=== PATIENT | female | born 1980 | race Caucasian/White ===

== ENCOUNTER 2016-06-21 17:58 | Emergency (ER) | payer OTHER ==
[~2016-06-21] VITALS: Ht 160 cm; Wt 63.5 kg
[2016-06-21 18:11] VITALS: BP 131/83; PULSE 77; RESP 16; TEMP 97.8; O2SAT 98
[2016-06-21] MEDS ORDERED: NACL 0.9% 1,000 ML IV ONE (19:45)
[2016-06-21] MEDS ORDERED: KETOROLAC TROMETHAMINE 30 MG VIAL IVP ONE (19:45)
[2016-06-21] MEDS ORDERED: DEXAMETHASONE SOD PHOSPHATE 10 MG/ML VIAL IVP ONE (19:45)
[2016-06-21] MEDS ORDERED: PROCHLORPERAZINE EDISYLATE 10 MG/2 ML VIAL IVP ONE (19:45)
[2016-06-21 21:46] VITALS: BP 116/73; PULSE 78; RESP 17; TEMP 97.8; O2SAT 99
== END 2016-06-21 21:46 | disposition home or self-care (01) ==
LOC: SED 17:58
DX: G43.909 Migraine, unspecified, not intractable, without status migrainosus (principal); R03.0 Elevated blood-pressure reading, without diagnosis of hypertension
CPT/HCPCS: 81025; 96361; 96374; 96375; 99284; J0780; J1100; J1885; J7030

== ENCOUNTER 2022-11-24 15:08 | Emergency (ER) | payer OTHER ==
[~2022-11-24] VITALS: Ht 160 cm; Wt 65.8 kg
[2022-11-24 15:26] VITALS: BP_SYST 112; PULSE 67; RESP 17; TEMP 98.2; O2SAT 100
[2022-11-24 17:28] VITALS: BP_SYST 116; PULSE 68; RESP 18; TEMP 98.2; O2SAT 100
== END 2022-11-24 17:28 | disposition home or self-care (01) ==
LOC: SED 15:08
DX: S00.83XA Contusion of other part of head, initial encounter (principal); Z79.899 Other long term (current) drug therapy; W22.8XXA Striking against or struck by other objects, initial encounter; Y93.89 Activity, other specified; Y92.89 Other specified places as the place of occurrence of the external cause; Y99.8 Other external cause status
CPT/HCPCS: 70450-TC; 76376; 99284

== ENCOUNTER 2023-06-23 20:24 | Emergency (ER) | payer OTHER ==
[~2023-06-23] VITALS: Ht 160 cm; Wt 64.9 kg
[2023-06-23 20:37] VITALS: BP_SYST 123; PULSE 80; RESP 17; TEMP 97.8; O2SAT 99
[2023-06-23 21:03] LABS: BASOPHILS # (AUTO) 0.1 K/uL (0.0-0.2); BASOPHILS % (AUTO) 0.8 % (0.0-2.0); EOSINOPHILS # (AUTO) 0.2 K/uL (0.0-0.4); EOSINOPHILS % (AUTO) 2.3 % (0.0-4.0); HEMATOCRIT 38.4 % (36-48); HEMOGLOBIN 13.1 g/dL (12.0-16.0); LYMPHOCYTES # (AUTO) 2.3 K/uL (1.0-5.5); LYMPHOCYTES % (AUTO) 25.3 % (20.5-51.5); MEAN CORPUSCULAR HEMOGLOBIN 30 pg (27-31); MEAN CORPUSCULAR HGB CONC 34 % (32-36); MEAN CORPUSCULAR VOLUME 86 fL (79.0-98.0); MONOCYTES # (AUTO) 0.6 K/uL (0.0-1.0); MONOCYTES % (AUTO) 6.5 % (1.7-9.3); NEUTROPHILS % (AUTO) 65.1 % (40.0-70.0); PLATELET COUNT (AUTO) 340 K/uL (130-430); RED BLOOD CELL COUNT(AUTO) 4.45 MIL/uL (4.2-6.2); WHITE BLOOD COUNT (AUTO) 9.2 K/uL (4.8-10.8)
[2023-06-23 21:31] LABS: CALCIUM 9.2 mg/dL (8.4-11.0); CREATININE 0.82 mg/dL (0.55-1.30)
[2023-06-23 21:35] LABS: ALBUMIN 3.7 g/dL (3.4-4.8); TOTAL BILIRUBIN 0.4 mg/dL (0.0-1.0); TOTAL PROTEIN, SERUM 7.5 g/dL (6.4-8.3)
[2023-06-23] MEDS ORDERED: SUCR1TAB2 PO (22:33)
[2023-06-23] MEDS ORDERED: FAMO40TA71 PO (22:33)
[2023-06-23] MEDS ORDERED: OMEP20CA15 PO (22:33)
[2023-06-23 22:53] VITALS: BP_SYST 120; PULSE 78; RESP 18; TEMP 97.8; O2SAT 99
== END 2023-06-23 22:53 | disposition home or self-care (01) ==
LOC: SED 20:24
DX: K29.70 Gastritis, unspecified, without bleeding (principal); R10.13 Epigastric pain; Z79.899 Other long term (current) drug therapy
CPT/HCPCS: 36415; 71045; 76705; 80053; 81025; 83690; 85025; 99284